=== PATIENT | female | born 1950 | race Caucasian/White ===

== ENCOUNTER 2018-05-15 11:02 | Emergency (ER) | payer OTHER ==
[~2018-05-15] VITALS: Ht 162.6 cm; Wt 46.7 kg
[~2018-05-15 11:02] MED LIST: ALLEGRA ALLERG180 M1 PO; CARBAMAZEPINE PO; ESCITALOPRAM OX10 MG PO; FAMOTIDINE20 M1 PO; LEVETIRACETAM1000 M1 PO; LISINOPRIL20 M1 PO; ONFI10 M1 PO; ONFI20 MG PO; PANTOPRAZOLE SO40 M1 PO; SYMBICORT 16010.2 GM INH; VANCOCIN HCL125 MG PO; VITAMIN D31000 UNI2 PO
[2018-05-15 11:09] VITALS: BP 150/78
--- NOTE | 2018-05-15 12:56 | ED GI/GU/ABDOMINAL COMPLAINT ---
History of Present Illness General Chief Complaint: Nausea, Vomiting, Diarrhea Stated Complaint: "I NEED TO BE CHECKED FOR C DIFF AGAIN" Source: patient, family Exam Limitations: no limitations Vital Signs & Intake/Output Vital Signs & Intake/Output Vital Signs Date Time Temp Pulse Resp B/P B/P Pulse O2 O2 Flow FiO2 Mean Ox Delivery Rate 05/15 1109 98.1 92 18 150/78 98 Room Air Allergies Coded Allergies: No Known Allergies (06/04/17) Reconcile Medications Budesonide/Formoterol Fumarate (Symbicort 160-4.5 Mcg Inhaler) 160 MCG-4.5 MCG/ ACTUATION HFA.AER.AD 2 PUF INH BID BREATHING PROBLEMS (Reported) Carbamazepine (Carbamazepine ER) 400 MG TAB.ER.12H 1 TAB PO BID SEIZURES ( Reported) Cholecalciferol (Vitamin D3) 1,000 UNIT TABLET 1 TAB PO DAILY VITAMIN SUPPORT (Reported) Clobazam (ONFI) 10 MG TABLET 1 TAB PO DAILY SEIZURES (Reported) Clobazam (ONFI) 20 MG TABLET 1 TAB PO QPM SEIZURES (Reported) Escitalopram Oxalate 10 MG TABLET 2 TAB PO QPM DEPRESSION (Reported) Famotidine 20 MG TABLET 20 MG PO BID gerd .. Fexofenadine HCl (Flor Allergy) 180 MG TABLET 1 TAB PO DAILY PRN ALLERGIES (Reported) Levetiracetam 1,000 MG TABLET 1 TAB PO BID SEIZURES (Reported) Lisinopril 20 MG TABLET 1 TAB PO DAILY BP (Reported) Vancomycin HCl (Vancocin HCl) 125 MG CAPSULE 1 CAP PO Q6 COLITIS Triage Note: PT WAS DIAGNOSED WITH UTI AT [facility] THE OTHER DAY, NOW COMPLAINS OF ABD CRAMPING AND 2 EPISODES LAST PM OF BLACK STOOL AND 1 THIS AM. PT HAS HISTORY OF C-DIFF IN THE PAST. ALSO STTES THAT SHE HAS A HEADACHE Triage Nurses Notes Reviewed? yes ? N Is pt currently ? No HPI: 68 yo female with a history of epilepsy, CVA, HTN, COPD, and C. Diff presents today for abdominal pain and diarrhea that started this morning. She reports having episodes of diarrhea at 2 am, 4 am, and 8 am this morning with muddy brown liquid stool that filled her toilet. The stool had no smell to it. She reports stomach pain in the mid epigastrum that is dull with no radiation adn a 3/10 on the pain scale, it is intermittent and has been present for a few weeks. Sleep makes it better and cold water aggravates it. Admits to abdominal pain, headache, chills, fatigue, weakness, blurry vision. Denies any fever, nausea, vomiting, chest pain, dizziness, or sob. She was recently diagnosed with a UTI and treated with macrobid two days ago by [facility]. 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 Currently smokes 1 PPD for the last 50 years. Past History Travel History Traveled to [place] past 21 day No Medical History Any Pertinent Medical History? see below for history Neurological: CVA (1963- age 13 with L weakness), seizure, epilepsy benign brain tumor resected 1962 EENT: NONE Cardiovascular: hypertension Respiratory: COPD Gastrointestinal: C. diff colitis 12/2016 @ [facility]- ? 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 Isamar Lewis (? if + LN) [employer]NAGER/Reproductive: NONE History of MRSA: No History of VRE: No History of CDIFF: Yes Surgical History Surgical History: bowel resection (? ileum/?AP/? right colon)- [facility] 12/2016 FOR CARCINOID TUMOR facial fxs post fall/seizure benign brain tumor resected 1962 at age 13 @ [facility], post presenting with CVA, with left residual Psychosocial History Services at Home None What is your primary language Syriac Tobacco Use: Never used Daily Tobacco Use Amount/Type: =< 4 Cigarettes daily ETOH Use: denies use Illicit Drug Use: denies illicit drug use Family History Family History, If Any: MOTHER, , Age 80; Cause: OBS (organic brain syndrome). FHx: cancer BROTHER (*CHEK2 positive). FHx: cancer FATHER, , Age 80; Cause: Fall. SISTER (*CHEK2 positive Pt is eldest of 6 kids (2 sis & 1 bro; the pt, 1 sis & 1 bro- CHEK2 positive )). Hx Contributory? No Review of Systems Review of Systems Constitutional: Reports: see HPI, chills, weakness. Denies: diaphoresis, fever, malaise. EENTM: Reports: see HPI, blurred vision. Respiratory: Reports: see HPI, wheezing. Cardiovascular: Reports: see HPI. GI: Reports: see HPI, abdominal pain, diarrhea. Genitourinary: Reports: see HPI. Musculoskeletal: Reports: no symptoms, see HPI. Skin: Reports: see HPI. Neurological/Psychological: Reports: see HPI. Hematologic/Endocrine: Reports: see HPI. Physical Exam Physical Exam General Appearance: well developed/nourished, no apparent distress, alert, awake Head: atraumatic, normal appearance Eyes: Bilateral: normal appearance, PERRL, EOMI, normal inspection. Ears, Nose, Throat, Mouth: hearing grossly normal Neck: normal inspection, supple, full range of motion, normal alignment Respiratory: chest non-tender, no respiratory distress, wheezing Cardiovascular: regular rate/rhythm Gastrointestinal: normal bowel sounds, soft, tenderness Pelvic: normal external exam Back: normal inspection Neurologic/Psych: awake, alert, oriented x 3 Core Measures ACS in differential dx? No Sepsis Present: No Sepsis Focused Exam Completed? No Progress Differential Diagnosis: bowel obstruction, colon cancer, gastritis, hemorrhoids, ischemic bowel, peptic ulcer Plan of Care: Orders Procedure Date/time Status Regular Diet 05/15 D Active CULTURE,STOOL 05/15 1239 Active C.DIFFICILE 05/15 1239 Active LIPASE 05/15 1239 Complete COMPREHENSIVE METABOLIC PANEL 05/15 1239 Complete CBC WITHOUT DIFFERENTIAL 05/15 1239 Complete Laboratory Tests 05/15/18 1310: Anion Gap 7, Estimated GFR > 60, BUN/Creatinine Ratio 32.9 H, Glucose 86, Calcium 9.6, Total Bilirubin 0.3, AST 28, ALT 32, Alkaline Phosphatase 106, Total Protein 6.6, Albumin 4.1, Globulin 2.5, Albumin/Globulin Ratio 1.6, Lipase 92, CBC w Diff MAN DIFF ORDERED, RBC 3.83 L, MCV 97.8, MCH 32.5 H, MCHC 33.2, RDW 13.4, MPV 9.2, Gran % 56.9, Lymphocytes % 31.6, Monocytes % 8.4, Eosinophils % 3.0, Basophils % 0.1, Absolute Granulocytes 3.0, Absolute Lymphocytes 1.7, Absolute Monocytes 0.4, Absolute Eosinophils 0.2, Absolute Basophils 0, Platelet Estimate VERIFIED BY SMEAR, Normocytic RBCs VERIFIED, Normochromic RBCs VERIFIED Microbiology 05/15 1239 STOOL: Clostridium difficile Toxin A & B - ORD 05/15 1239 STOOL: Stool Culture - ORD Given presentation, low suspicion for C.difficile, with normal CT and WBC. Patient feels well and has no complaints after IV hydration, and wishes to go home. She was not able to have a bowel movement during her ER stay. Will discharge patient home, continue her home antibiotics for UTI, send with stool collection kit for C.diff and follow up as an outpatient. Diagnostic Imaging: Viewed by Me: CT Scan. Discussed w/RAD: CT Scan. Radiology Impression: PATIENT: PAIGE CID PRESENT AGE: 68 PATIENT ACCOUNT NO: [id number] : 50 LOCATION: [facility] ORDERING PHYSICIAN: Aston Seals MD SERVICE DATE: 05/15/18 EXAM TYPE: CAT - CT ABD & PELVIS W/O IV CONTRAS EXAMINATION: CT ABDOMEN AND PELVIS WITHOUT CONTRAST CLINICAL INFORMATION: 68-year-old female with profuse diarrhea and periumbilical pain. COMPARISON: 06/04/2017 TECHNIQUE: Multidetector volumetric imaging was performed from the superior aspect of the liver through the pubic symphysis. Sagittal and coronal reformatted images were obtained on the technologist's workstation. DLP: 214 mGy-cm FINDINGS: LUNG BASES: Unremarkable. No basilar consolidation or pleural effusion. LIVER, GALLBLADDER, AND BILIARY TREE: The liver has normal size, shape, and attenuation. No focal hepatic lesion. The gallbladder is normal. No intrahepatic or extrahepatic bile duct dilatation. PANCREAS: Unremarkable. SPLEEN: Unremarkable. ADRENAL GLANDS: Unremarkable. KIDNEYS AND URETERS: The kidneys have normal size, shape, and attenuation. No hydroureteronephrosis, urolithiasis or perinephric stranding. BLADDER: Unremarkable. BOWEL AND PERITONEUM: Stomach is underdistended. Bowel loops are normal in caliber. Again noted is suture along the ascending colon. The appendix is not identified. There are no inflammatory changes within the right lower quadrant of the abdomen. No focal bowel wall thickening or mesenteric fat stranding. The rectum is unremarkable. No ascites, pneumoperitoneum or abscess. ABDOMINAL WALL: Unremarkable. LYMPH NODES: No pathologic sized lymph nodes in the abdomen or pelvis. No inguinal lymphadenopathy. VASCULAR: Atherosclerotic calcification of the abdominal aorta and iliac arteries without aneurysm. PELVIC: The uterus and adnexa are unremarkable. No pelvic mass or free fluid. SKELETAL: Mild levoscoliosis of lumbar spine. Facet arthropathy, chondrocalcinosis and bulging discs at L3-L4 and L4-L5. No suspicious bone lesions. IMPRESSION: - No acute imaging abnormalities within the abdomen or pelvis. - No evidence of bowel obstruction, enteritis or colitis. DICTATED BY: Jonel Dacosta MD DATE/TIME DICTATED:1507 [employer] SAL[employer] CONSULTANT:LIAM DATE/TIME TRANSCRIBED:05/15/181507 CONFIDENTIAL, DO NOT COPY WITHOUT APPROPRIATE AUTHORIZATION. <Electronically signed in Other Vendor System> SIGNED BY: Jonel Dacosta MD 05/15/18 1511 Initial ED EKG: none Departure Departure Disposition: HOME OR SELF CARE Condition: Stable Clinical Impression Primary Impression: Gastroenteritis Referrals: Blair CRUMP,Dawson Pearce (PCP/Family) Additional Instructions: Follow up with your PCP. Drink plenty of water. If any new or worsening symptoms return to ER. You may continue your antibiotic but stop if diarrhea persists. Departure Forms: Customer Survey General Discharge Information
[2018-05-15 13:36] LABS: ABSOLUTE BASOPHIL COUNT 0 /CUMM (0.0-0.2); ABSOLUTE EOSINOPHIL COUNT 0.2 /CUMM (0.0-0.7); ABSOLUTE LYMPH COUNT 1.7 /CUMM (1.2-3.4); ABSOLUTE MONOCYTE COUNT 0.4 /CUMM (0.10-0.60); BASOPHIL % 0.1 % (0.0-2.0); GRANULOCYTE % 56.9 % (42.2-75.2); HEMATOCRIT 37.4 % (37-47); MEAN CORPUSCULAR HGB 32.5 PG (27.0-31.0); MEAN CORPUSCULAR HGB CONC 33.2 G/DL (33.0-37.0); MEAN CORPUSCULAR VOLUME 97.8 FL (81.0-99.0); MEAN PLATELET VOLUME 9.2 FL (7.4-10.4); PLATELET COUNT 222 /CUMM (130-400); RBC DISTRIBUTION WIDTH 13.4 % (11.5-14.5); RED BLOOD CELL CT 3.83 /CUMM (4.20-5.40); WHITE BLOOD CELL COUNT 5.4 /CUMM (4.8-10.8)
--- NOTE | 2018-05-15 15:19 | CT SCAN REPORT ---
EXAMINATION: CT ABDOMEN AND PELVIS WITHOUT CONTRAST CLINICAL INFORMATION: 68-year-old female with profuse diarrhea and periumbilical pain. COMPARISON: 06/04/2017 TECHNIQUE: Multidetector volumetric imaging was performed from the superior aspect of the liver through the pubic symphysis. Sagittal and coronal reformatted images were obtained on the technologist's workstation. DLP: 214 mGy-cm FINDINGS: LUNG BASES: Unremarkable. No basilar consolidation or pleural effusion. LIVER, GALLBLADDER, AND BILIARY TREE: The liver has normal size, shape, and attenuation. No focal hepatic lesion. The gallbladder is normal. No intrahepatic or extrahepatic bile duct dilatation. PANCREAS: Unremarkable. SPLEEN: Unremarkable. ADRENAL GLANDS: Unremarkable. KIDNEYS AND URETERS: The kidneys have normal size, shape, and attenuation. No hydroureteronephrosis, urolithiasis or perinephric stranding. BLADDER: Unremarkable. BOWEL AND PERITONEUM: Stomach is underdistended. Bowel loops are normal in caliber. Again noted is suture along the ascending colon. The appendix is not identified. There are no inflammatory changes within the right lower quadrant of the abdomen. No focal bowel wall thickening or mesenteric fat stranding. The rectum is unremarkable. No ascites, pneumoperitoneum or abscess. ABDOMINAL WALL: Unremarkable. LYMPH NODES: No pathologic sized lymph nodes in the abdomen or pelvis. No inguinal lymphadenopathy. VASCULAR: Atherosclerotic calcification of the abdominal aorta and iliac arteries without aneurysm. PELVIC: The uterus and adnexa are unremarkable. No pelvic mass or free fluid. SKELETAL: Mild levoscoliosis of lumbar spine. Facet arthropathy, chondrocalcinosis and bulging discs at L3-L4 and L4-L5. No suspicious bone lesions. IMPRESSION: - No acute imaging abnormalities within the abdomen or pelvis. - No evidence of bowel obstruction, enteritis or colitis.
== END 2018-05-15 16:35 ==
LOC: ERH 11:02
PROVIDERS: Internal Medicine
DX: K52.9 Noninfective gastroenteritis and colitis, unspecified (principal); R56.9 Unspecified convulsions; I10 Essential (primary) hypertension; J44.9 Chronic obstructive pulmonary disease, unspecified; F32.9 Major depressive disorder, single episode, unspecified; D64.9 Anemia, unspecified; F17.210 Nicotine dependence, cigarettes, uncomplicated
CPT/HCPCS: 74176; 87015; 87045; 87899; 87899-59